=== PATIENT | male | born 1960 | race African-American/Black ===

== ENCOUNTER 2021-09-29 21:21 | Emergency (ER) | payer OTHER ==
[~2021-09-29] VITALS: Ht 175.3 cm; Wt 85.9 kg
[2021-09-29 22:13] LABS: HEMATOCRIT 28.3 % (39.0-50.0); HEMOGLOBIN 8.6 g/dl (14.0-18.0); IMMATURE GRANULOCYTES 0.9 % (0.0-5.0); MEAN CORPUSCULAR HGB 29.8 pG CALC (26.0-32.0); MEAN CORPUSCULAR HGB CONC 30.4 g/dL CAL (32.0-36.0); NEUT# 14.76 thou/uL (1.82-7.42); RED BLOOD COUNT 2.89 mill/uL (4.70-6.10); RED CELL DISTRI WIDTH 17.7 % (11.5-15.5)
[2021-09-29 22:28] LABS: MEAN CELL VOLUME 97.9 fL CALC (80.0-100.0)
[2021-09-29 22:32] LABS: ALBUMIN 3.7 g/dL (3.2-5.0); BILIRUBIN, TOTAL 0.6 mg/dL (0.0-1.4); MAGNESIUM 1.6 mg/dL (1.6-2.3); TOTAL PROTEIN 6.5 g/dL (6.3-8.2)
[2021-09-29 22:39] LABS: CREATININE 6.4 mg/dL (0.7-1.3)
[2021-09-30] MEDS ORDERED: LATANOPROST0.005 % (00:18)
[2021-09-30] MEDS ORDERED: NIFEDIPINE ER30 MG PO (00:19)
[2021-09-30] MEDS ORDERED: ELIQUIS2.5 MG PO (00:20)
[2021-09-30] MEDS ORDERED: RENVELA800 MG PO (00:20)
[2021-09-30] MEDS ORDERED: MELATONIN10 MG PO (00:21)
[2021-09-30] MEDS ORDERED: SILDENAFIL20 MG PO (00:21)
[2021-09-30] MEDS ORDERED: PROTONIX40 M2 PO (00:22)
[2021-09-30] MEDS ORDERED: PREDNISONE5 MG PO (00:22)
[2021-09-30] MEDS ORDERED: NORVASC5 M1 PO (00:23)
[2021-09-30] MEDS ORDERED: LEVAQUIN750 M1 PO (00:42)
[2021-09-30 02:30] VITALS: BP 85/47
== END 2021-09-30 02:50 | disposition designated cancer center or children's hospital (05) | DRG 193 ==
LOC: ED 21:21
PROVIDERS: Family Medicine
DX: J18.9 Pneumonia, unspecified organism (principal); N18.6 End stage renal disease; I12.0 Hypertensive chronic kidney disease with stage 5 chronic kidney disease or end stage renal disease; Z99.2 Dependence on renal dialysis; Z20.822 Contact with and (suspected) exposure to COVID-19

== ENCOUNTER 2021-10-14 14:28 | Emergency (ER) | payer OTHER ==
[~2021-10-14] VITALS: Ht 175.3 cm; Wt 84.0 kg
[~2021-10-14 14:28] MED LIST: ELIQUIS2.5 MG PO; LATANOPROST0.005 %; LEVAQUIN750 M1 PO; MELATONIN10 MG PO; NIFEDIPINE ER30 MG PO; NORVASC5 M1 PO; PREDNISONE5 MG PO; PROTONIX40 M2 PO; RENVELA800 MG PO; SILDENAFIL20 MG PO
[2021-10-14 14:57] LABS: HEMATOCRIT 26.9 % (39.0-50.0); HEMOGLOBIN 8.1 g/dl (14.0-18.0); IMMATURE GRANULOCYTES 1.3 % (0.0-5.0); MEAN CELL VOLUME 107.2 fL CALC (80.0-100.0); MEAN CORPUSCULAR HGB 32.3 pG CALC (26.0-32.0); MEAN CORPUSCULAR HGB CONC 30.1 g/dL CAL (32.0-36.0); RED BLOOD COUNT 2.51 mill/uL (4.70-6.10); RED CELL DISTRI WIDTH 17.5 % (11.5-15.5)
[2021-10-14 15:15] LABS: ALBUMIN 3.8 g/dL (3.2-5.0); BILIRUBIN, TOTAL 0.4 mg/dL (0.0-1.4); POTASSIUM 3.5 mmol/l (3.5-5.1); TOTAL PROTEIN 6.8 g/dL (6.3-8.2)
[2021-10-14 15:19] LABS: CREATININE 7.7 mg/dL (0.7-1.3)
== END 2021-10-14 15:50 | disposition home or self-care (01) | DRG 811 ==
LOC: ED 14:28
PROVIDERS: Family Medicine
DX: D64.9 Anemia, unspecified (principal); N18.6 End stage renal disease; I12.0 Hypertensive chronic kidney disease with stage 5 chronic kidney disease or end stage renal disease; Z99.2 Dependence on renal dialysis; M34.9 Systemic sclerosis, unspecified